=== PATIENT | female | born 2000 | race Caucasian/White ===

== ENCOUNTER 2023-11-18 11:59 | Emergency (ER) | payer BC ==
[~2023-11-18] VITALS: Ht 172.7 cm; Wt 59.1 kg
[2023-11-18 12:16] VITALS: TEMP 98.1
[2023-11-18] MEDS ORDERED: NS 1,000 ML IV ONE (12:45)
[2023-11-18] MEDS ORDERED: Ondansetron 4 MG/2 ML VIAL IV ONE (13:00)
[2023-11-18 13:04] LABS: MEAN CELL VOLUME 89 fl (80.0-100.0); MEAN CORPUSCULAR HEMOGLOBIN 34 pg (27-31); MEAN CORPUSCULAR HGB CONC 38 g/dl (33.0-37.0); MEAN PLATELET VOLUME 11.1 fl (7.4-10.4); PLATELET COUNT 271 K/mm3 (130-400); REDCELL DISTRIBUTION WIDTH-CV 12.1 % (11.5-14.5)
[2023-11-18 13:10] LABS: PH 5.5 (5.0-8.5); URINE APPEARANCE CLEAR (CLEAR/HAZY); URINE BLOOD NEGATIVE (NEGATIVE); URINE COLOR Dark Yellow (YELLOW); URINE GLUCOSE NEGATIVE (NEGATIVE); URINE KETONE 3+ (NEGATIVE); URINE NITRATE NEGATIVE (NEGATIVE); URINE PROTEIN(semi-quant) NEGATIVE (NEGATIVE)
[2023-11-18 13:21] LABS: ALBUMIN 4.3 gm/dL (3.5-5.0); BILIRUBIN,TOTAL 3.9 mg/dL (0.2-1.2); CALCIUM 9.8 mg/dL (8.4-10.2); CREATININE, serum 0.76 mg/dL (0.57-1.11); POTASSIUM 4.2 mmol/L (3.5-4.5); TOTAL PROTEIN 7.1 gm/dL (6.2-8.1)
[2023-11-18 13:22] LABS: COLLECTION METHOD CLEAN CATCH
[2023-11-18 13:32] LABS: BAND 1 % (0-10); LYMPHOCYTE 1 % (20.0-51.0); NEUTROPHILS 96 % (42.0-75.2)
[2023-11-18 14:12] LABS: HEMATOCRIT 47.5 % (37.0-47.0); HEMOGLOBIN 17.3 g/dl (12.5-16.0)
[2023-11-18] MEDS ORDERED: ZOFRAN ODT4 MG PO (14:19)
[2023-11-18 14:30] VITALS: BP 116/78; PULSE 82
== END 2023-11-18 14:30 | disposition home or self-care (01) ==
LOC: COL.ER 11:59
PROVIDERS: Physician Assistant
DX: R10.9 Unspecified abdominal pain (principal); R11.2 Nausea with vomiting, unspecified; D72.829 Elevated white blood cell count, unspecified
CPT/HCPCS: J2405; J7030